=== PATIENT | female | born 1935 | race Caucasian/White ===

== ENCOUNTER → 2017-08-22 | Outpatient (CLI) | payer MEDICARE ==
[~2017-08-22] MED LIST: Advil200 M1 PO; CALCAVITD PO; CENTRUM SILVER1 EAC3 PO; CHOL10002 PO; CONEST.625 PO; ENAL20 PO; FISH1000 PO; Fibercon625 MG PO; HYDCHL25 PO; HYDR1TAB94 PO; LEVFLO500 PO; LISI20 PO; MULVITMINF PO; PANT40 PO; POLY500 PO; Red Yeast Rice600 MG PO
== END ==
LOC: PLD 12:15 → LAB SHORT 12:15
DX: D48.5 Neoplasm of uncertain behavior of skin (principal)
CPT/HCPCS: 88305